=== PATIENT | female | born 2000 | race Caucasian/White ===

== ENCOUNTER 2020-04-17 20:43 | Emergency (ER) | payer MEDICAID, SELFPAY ==
[2020-04-17 21:42] VITALS: BP 133/72; PULSE 106; RESP 20; TEMP 36.6; O2SAT 99
[2020-04-17 21:48] VITALS: BP 133/72; PULSE 106; RESP 20; TEMP 36.6; O2SAT 99; BMI 18.7
--- NOTE | 2020-04-17 22:57 | PC.NURSE ---
provider spoke with patient, following conversation provider cancelled all order. pt wants to leave. pt awake and alert, ambulatory with steady gait.
--- NOTE | 2020-04-18 02:58 | ED.ANXIETY ---
HPI - Anxiety General Chief Complaint: Anxiety Stated Complaint: ?Anxiety Time Seen by Provider: 04/17/20 22:27 Source: patient Mode of arrival: ambulatory Limitations: no limitations History of Present Illness HPI narrative: 20-year-old hearing-impaired female presents with chest pressure, chest tightness, pain radiating to her back, suspected panic attack. Patient states that she was riding home from a doctor's appointment with her mother and she started to feel chest pressure and tightness with sharp radiating pain to her back. She denies SI, HI, and any other concerning symptoms at this time. MD complaint: anxiety and shortness of breath Onset (ago): hour(s) (Several hours) Symptoms: dyspnea, chest pain, palpitations and extremity numbness/tingling Severity: moderate Quality: constant History of similar episodes: Yes Provoking factors: none known Exacerbating factors: thinking about event Associated symptoms: denies other symptoms Related Data Previous Rx's Medication Instructions Recorded hydroxyzine HCl 50 mg PO BID PRN #14 tab 04/17/20 Allergies Allergy/AdvReac Type Severity Reaction Status Date / Time No Known Allergies Allergy Verified 04/17/20 21:52 Review of Systems Review of Systems: Constitutional: No Fever, No Chills ENT/Mouth: No Ear Pain, No Nasal Congestion, No sore throat Eyes: No Eye Pain, No Swelling, No Redness Cardiovascular: Positive Chest Pain, positive SOB Respiratory: No Cough, No Sputum, No Dyspnea Gastrointestinal: No Nausea, No Vomiting, No Diarrhea, No Hematochezia, No Melena Genitourinary: No Dysuria, No Urinary Frequency, No Hematuria Musculoskeletal: No Myalgias Skin: No Skin Lesions, No rash Neuro: No Weakness, No Numbness, No Paresthesias, No Dizziness, No Headache Psych: positive Anxiety, no Depression, no SI/HI Heme/Lymph: No Lymphadenopathy Endocrine: No Polyuria, No Polydipsia Yes all other systems are reviewed and are negative [facility] Past Medical History Attestation statement: The following information was validated with the patient. Source: old records reviewed and obtained from family Social History Social History Advance Directives: No Advance Directives Information Provided: Yes Physical Exam Vital Signs: Vital Signs: Last Vital Signs Temp 97.9 F 04/17/20 21:48 Pulse 106 H 04/17/20 21:48 Resp 20 04/17/20 21:48 BP 133/72 04/17/20 21:48 Pulse Ox 99 04/17/20 21:48 Body Mass Index 18.7 Appearance: Alert. Oriented X3. No acute distress. Eyes: Pupils equal, round and reactive to light. ENT: Pharynx normal. Neck: Normal inspection. Neck supple. CVS: Normal heart rate and rhythm. Pulses normal. Respiratory: No respiratory distress. Breath sounds normal. Abdomen: Soft and nontender. Skin: Skin warm and dry. Normal skin color. Normal skin turgor. Extremities: No lower extremity edema. Neuro: No motor deficit. No sensory deficit. Course Course Course Narrative: 20-year-old female hearing-impaired with no significant past medical history presents with symptoms consistent with anxiety. However during her discussion she stated that she is having a difficult time taking a deep breath, and has had a sensation intermittently over the past couple weeks. It is concerning because she states that the pain radiates to her mid back which could possibly be a more acute finding than anxiety. Patient does not want any labs drawn, does not want any testing or an EKG. Patient requested that I speak to her mother, I discussed the plan with her mom for lab values, EKG and chest x-ray however patient continues to declined these services. She states that she was at a physician's office and had several tubes of blood drawn earlier today, it was explained to her that we do not have these values and cannot get the medical record because the office that she went to is currently closed. Patient will be discharged to home, mother did understand that patient must follow up for further workup. MDM - Anxiety Differential Diagnosis Differential diagnosis: Likely hyperventilation, panic disorder and acute anxiety Medical Records Attestation: I reviewed the patient's medical records. Discharge Plan Discharge Clinical Impression: Acute anxiety, Hyperventilation Patient Disposition: Home, Self-Care Instructions: Anxiety (ED) Additional Instructions: Please follow-up with primary care physician. You were evaluated for chest tightness and pain radiating to her back. You did not allow any labs or imaging studies to be completed. We prescribed hydroxyzine, which can help with anxiety. Take his medication as directed. Thank you for choosing this emergency department for evaluation. Please follow-up with primary care physician as needed. Return to the emergency department for any new, concerning, or worsening symptoms. Prescriptions: New hydroxyzine HCl 50 mg tablet 50 mg PO BID PRN (Reason: anxiety) Qty: 14 RF: 0 Interventions: ED Discharge Assessment Last Done: 04/17/20 23:03 Discharge Date/Time: 04/17/20 23:06
== END 2020-04-17 23:06 | disposition home or self-care (01) ==
PROVIDERS: Emergency Provider Emergency Medicine; PCP Physician Assistant Medical
DX: F41.1 Generalized anxiety disorder (principal); F43.0 Acute stress reaction; R06.4 Hyperventilation; Z79.899 Other long term (current) drug therapy
CPT/HCPCS: 99283